=== PATIENT | female | born 1980 | race Two or more races ===

== ENCOUNTER 2023-07-10 01:51 | Emergency (ER) | payer MEDICAID, OTHER ==
[~2023-07-10] VITALS: Ht 160 cm; Wt 86.3 kg
[2023-07-10] MEDS: IOHEXOL 350 MG/ML 100ML IJ ONE ×2 (03:09→04:35)
[2023-07-10] MEDS: SODIUM CHLORIDE 0.9% 1,000 ML IVB ONE (03:22)
[2023-07-10] MEDS: ONDANSETRON HCL 4 MG/2 ML VIAL IV ONE (03:28)
[2023-07-10] MEDS: NALOXONE HCL 0.4 MG/ML VIAL IV ONE (03:29)
[2023-07-10 03:50] LABS: Acetaminophen < 2.0 UG/ML (10.0-20.0); Alanine Aminotransferase 35 U/L (7-40); Albumin 4.7 g/dL (3.2-4.8); Alkaline Phosphatase 70 U/L (46-116); Anion Gap 8 (5-15); Aspartate Aminotransferase 23 U/L (13-40); BUN/Creatinine Ratio 14.9 (10.0-20.0); Bilirubin, Total 0.6 mg/dL (0.2-1.0); Blood Urea Nitrogen 11 mg/dL (9-23); Calcium 9.8 mg/dL (8.7-10.4); Carbon Dioxide 26 mmol/L (20-30); Chloride 103 mmol/L (98-107); Glucose 118 mg/dL (74-106); Magnesium 1.9 mg/dL (1.6-2.6); Potassium 3.6 mmol/L (3.5-5.1); Sodium 137 mmol/L (136-145); Total Protein 7.8 g/dL (5.7-8.2)
[2023-07-10 03:51] LABS: Salicylate < 3.0 mg/dL (2.8-20.0)
[2023-07-10 03:54] LABS: Lactic Acid w/Reflex 2.3 mmol/L (0.4-2.0)
[2023-07-10 04:15] LABS: Basophils # (auto) 0.1 10 ^3/uL (0-0.2); Basophils % (auto) 0.9 % (0.0-2.0); Eosinophils # (auto) 0.1 10 ^3/uL (0-0.8); Eosinophils % (auto) 0.9 % (0.0-7.0); Hematocrit 37.7 % (36.0-46.0); Hemoglobin 12.5 g/dL (12.2-16.2); Lymphocytes # (auto) 1.9 10 ^3/uL (0.4-5.4); Lymphocytes % (auto) 15.3 % (10.0-50.0); Mean Corpuscular Hemoglobin 28.4 pg (28.0-32.0); Mean Corpuscular Hgb Conc. 33.1 g/dL (32.0-36.0); Mean Corpuscular Volume 85.6 fL (80.0-100.0); Monocytes # (auto) 0.5 10 ^3/uL (0-1.3); Neutrophils # (auto) 9.6 10 ^3/uL (1.6-8.6); Neutrophils % (auto) 78.9 % (37.0-80.0); Red Cell Distribution Width 13.1 % (11.8-14.3); White Blood Cell 12.1 10^3/uL (4.4-10.8)
[2023-07-10 04:27] LABS: INR 1.04 (0.9-1.15); Partial Thromboplastin Time 26.5 SEC (24.5-34.5); Prothrombin Time 10.9 sec (9.3-11.8)
[2023-07-10 04:40] LABS: Blood Alcohol < 3.0 mg/dL (<10)
[2023-07-10 06:00] VITALS: BP 115/64; RESP 15; O2SAT 95
[2023-07-10 06:11] VITALS: PULSE 65
[2023-07-10] MEDS: cefTRIAXone 1GM/50ML D5W 50 ML IV ONE (06:13)
== END 2023-07-10 06:59 | disposition left against medical advice (07) ==
LOC: ER 01:51
DX: R51.9 Headache, unspecified (principal); E11.9 Type 2 diabetes mellitus without complications; I10 Essential (primary) hypertension; Z86.73 Personal history of transient ischemic attack (TIA), and cerebral infarction without residual deficits
CPT/HCPCS: 36415; 70450; 71045; 80053; 80320; 80329; 83605; 83735; 83880; 84484; 85610; 85730; 87040; 93005; 96361; 96365; 96375; 99285; J0696; J2310; J2405; J7030; Q9967